=== PATIENT | male | born 1995 | race Caucasian/White ===

== ENCOUNTER 2017-03-13 18:37 | Emergency (ER) | payer BC, OTHER ==
[~2017-03-13] VITALS: Ht 177.8 cm; Wt 88.1 kg
[~2017-03-13 18:37] MED LIST: IBUP-1277 PO
[2017-03-13 18:47] VITALS: TEMP 36.9; Ht 177.8 cm; Wt 88.1 kg
[2017-03-13] MEDS ORDERED: KETOROLAC TROMETHAMINE 30 MG/ML VIAL IV STA (19:01)
[2017-03-13] MEDS ORDERED: DEXAMETHASONE SOD INJ 10 MG/ML VIAL IV ONE (19:15)
[2017-03-13] MEDS ORDERED: DICL50TA3 PO (19:19)
[2017-03-13 19:39] LABS: BASO % 0.3 %; BASO ABS # 0.03 K/uL (0-0.2); COMPLETE YES; EOS % 1.2 %; HEMATOCRIT 45.6 % (42-52); IG% 0.2 %; LYMPH % 22.8 %; LYMPH ABS # 2.13 K/uL (1.2-3.4); MEAN CELL VOLUME 84.1 fL (80-100); MEAN CORPUSCULAR HGB CONC 34.4 g/dl (32-36); MEAN PLATELET VOLUME 9.3 fL (7.4-10.4); MONO % 7.4 %; NEUT % 68.1 %; PLATELET COUNT 220 K/uL (130-400); RED BLOOD COUNT 5.42 M/uL (4.7-6.1); WHITE BLOOD COUNT 9.34 K/uL (4.8-10.8)
--- NOTE | 2017-03-13 19:54 | DIAGNOSTIC IMAGING REPORT ---
CT OF THE LUMBAR SPINE WITHOUT CONTRAST CLINICAL HISTORY: Lumbar radiculopathy. Back pain and lower extremity numbness. COMPARISON STUDY: No previous studies for comparison. TECHNIQUE: Axial images of the lumbar spine were obtained without IV contrast. Sagittal and coronal reconstructions were reviewed. FINDINGS: Alignment of the lumbar spine is anatomic. Vertebral body heights are maintained. No acute fracture or suspicious lesion is identified. There is a Schmorl's node along the inferior endplate of L3. The paravertebral soft tissues are unremarkable. The central canal and neural foramen are suboptimally assessed by CT. However, the neural foramen and central canal appear grossly patent. IMPRESSION: 1. No acute lumbar spine fracture or subluxation. 2. No significant abnormality of the lumbar spine by CT. Central canal and neural foramen are suboptimally assessed by CT but appear patent on this exam. Electronically signed by: Anam Almonte M.D. 03/13/2017 7:53 PM Dictated Date/Time: 03/13/2017 7:48 PM
[2017-03-13 20:05] LABS: ALT/SGPT 22 U/L (12-78); BLOOD UREA NITROGEN 6 mg/dl (7-18); BUN/CREATININE RATIO 6.6 (10-20); C-REACTIVE PROTEIN < 0.29 mg/dl (0-0.29); CARBON DIOXIDE 29 mmol/L (21-32); CHLORIDE 106 mmol/L (98-107); CREATININE 0.95 mg/dl (0.60-1.40); GLUCOSE 91 mg/dl (70-99); POTASSIUM 3.7 mmol/L (3.5-5.1); SODIUM 141 mmol/L (136-145)
[2017-03-13 20:08] LABS: ALKALINE PHOSPHATASE 69 U/L (45-117); AST/SGOT 13 U/L (15-37)
[2017-03-13 20:29] LABS: LYME DISEASE AB IGG NEG (NEG); LYME DISEASE AB IGM NEG (NEG)
--- NOTE | 2017-03-13 20:34 | EMERGENCY ROOM VISIT NOTE ---
History First contact with patient: 18:51 Chief Complaint: BACK PAIN Stated Complaint: NUMB IN LEGS AND BACK PAIN History of Present Illness The patient is a 21 year old male who presents to the Emergency Room with complaints of a 2 year history of intermittent lower back pain radiating down the legs. He has also had other joint pains as well. The patient reports that his symptoms have been progressively worsening over the past few weeks. He was seen by his PCP, Dr. 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 The patient denies any known injury to the back. 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 The patient has not noticed any weakness of the lower extremities, bladder/bowel difficulties or saddle anesthesias. He rates his discomfort a 7 out of 10. The patient reports that he was checked for Lyme's disease one year ago and was normal. He is outside every day and cannot rule out contact with deer ticks. Review of Systems HEENT: Denies dizziness, visual problems, hearing loss, tinnitus. Denies difficulty swallowing or oral lesions. PULMONARY: Denies cough, shortness of breath, sputum production or hemoptysis. CARDIOVASCULAR: Denies chest pain, palpitations, dyspnea on exertion, orthopnea or peripheral edema. GASTROINTESTINAL: Denies diarrhea, constipation, nausea, vomiting, or abdominal pain. GENITOURINARY: Denies dysuria, frequency, urgency or nocturia. NEUROLOGIC: Denies history of epilepsy, CVA, TIA or chronic headaches. MUSCULOSKELETAL: See history of present illness. SKIN: Denies rashes or lesions. PSYCHIATRIC: Denies history of depression or mental illness. ENDOCRINE: Denies history of diabetes or thyroid disorders. Past Medical/Surgical History Medical Problems: (1) No significant past medical history Surgical Problems: (1) History of wisdom tooth extraction Family History FH: diabetes mellitus FH: heart disease FH: hypertension FH: lung disease Social History Smoking Status: Never Smoker Smokeless Tobacco Use: Yes Alcohol Use: none Marital Status: Occupation Status: employed Current/Historical Medications Scheduled Diclofenac (Voltaren), 50 MG PO TID Physical Exam Vital Signs Date Time Temp Pulse Resp B/P (MAP) Pulse Ox O2 Delivery O2 Flow Rate FiO2 03/13/17 18:47 36.9 77 20 157/66 98 Room Air Physical Exam CONSTITUTIONAL: Healthy and well nourished. Alert and oriented X 3 with positive affect. Patient does not appear in any acute distress. HEENT: Normocephalic, atraumatic. Pupils equal, round and reactive. NECK: Full active range of motion without discomfort. RESPIRATORY: Clear to auscultation bilaterally with no wheezing, crackles, rhonchi or stridor. CARDIOVASCULAR: Regular rate and rhythm with no murmurs, rubs or gallops. GASTROINTESTINAL: Bowel sounds present in all quadrants. Soft and nontender to palpation. MUSCULOSKELETAL: Examination shows minimal tenderness to palpation through the lower lumbar paraspinous muscles and SI joints. Negative logroll. Negative straight leg raise. Ankle plantar/dorsiflexion strength is 5 out of 5 and symmetric bilaterally. INTEGUMENTARY: No rash or other significant dermatologic conditions noted. NEUROLOGIC: Lower extremities are sensory intact with 2+ deep tendon reflexes which are symmetric. Medical Decision & Procedures ER Provider Diagnostic Interpretation: Noncontrast CT of the lumbar spine does not show any acute fractures or other concerning findings, given limitations of a noncontrast study and MRI approach. Radiologist report is as follows: CT OF THE LUMBAR SPINE WITHOUT CONTRAST CLINICAL HISTORY: Lumbar radiculopathy. Back pain and lower extremity numbness. COMPARISON STUDY: No previous studies for comparison. TECHNIQUE: Axial images of the lumbar spine were obtained without IV contrast. Sagittal and coronal reconstructions were reviewed. FINDINGS: Alignment of the lumbar spine is anatomic. Vertebral body heights are maintained. No acute fracture or suspicious lesion is identified. There is a Schmorl's node along the inferior endplate of L3. The paravertebral soft tissues are unremarkable. The central canal and neural foramen are suboptimally assessed by CT. However, the neural foramen and central canal appear grossly patent. IMPRESSION: 1. No acute lumbar spine fracture or subluxation. 2. No significant abnormality of the lumbar spine by CT. Central canal and neural foramen are suboptimally assessed by CT but appear patent on this exam. Laboratory Results 03/13/17 19:20 Red Blood Count 5.42, Mean Corpuscular Volume 84.1, Mean Corpuscular Hemoglobin 29.0, Mean Corpuscular Hemoglobin Concent 34.4, Mean Platelet Volume 9.3, Neutrophils (%) (Auto) 68.1, Lymphocytes (%) (Auto) 22.8, Monocytes (%) (Auto) 7.4, Eosinophils (%) (Auto) 1.2, Basophils (%) (Auto) 0.3, Neutrophils # (Auto) 6.36, Lymphocytes # (Auto) 2.13, Monocytes # (Auto) 0.69, Eosinophils # (Auto) 0.11, Basophils # (Auto) 0.03 03/13/17 19:20 Test 03/13/17 19:20 White Blood Count 9.34 K/uL (4.8-10.8) Red Blood Count 5.42 M/uL (4.7-6.1) Hemoglobin 15.7 g/dL (14.0-18.0) Hematocrit 45.6 % (42-52) Mean Corpuscular Volume 84.1 fL (80-100) Mean Corpuscular Hemoglobin 29.0 pg (25-34) Mean Corpuscular Hemoglobin Concent 34.4 g/dl (32-36) Platelet Count 220 K/uL (130-400) Mean Platelet Volume 9.3 fL (7.4-10.4) Neutrophils (%) (Auto) 68.1 % Lymphocytes (%) (Auto) 22.8 % Monocytes (%) (Auto) 7.4 % Eosinophils (%) (Auto) 1.2 % Basophils (%) (Auto) 0.3 % Neutrophils # (Auto) 6.36 K/uL (1.4-6.5) Lymphocytes # (Auto) 2.13 K/uL (1.2-3.4) Monocytes # (Auto) 0.69 K/uL (0.11-0.59) Eosinophils # (Auto) 0.11 K/uL (0-0.5) Basophils # (Auto) 0.03 K/uL (0-0.2) RDW Standard Deviation 37.5 fL (36.4-46.3) RDW Coefficient of Variation 12.3 % (11.5-14.5) Immature Granulocyte % (Auto) 0.2 % Immature Granulocyte # (Auto) 0.02 K/uL (0.00-0.02) Erythrocyte Sedimentation Rate 2 mm/hr (0-14) Anion Gap 6.0 mmol/L (3-11) Est Creatinine Clear Calc Drug Dose 136.4 ml/min Estimated GFR () 131.2 Estimated GFR (Non- 113.2 BUN/Creatinine Ratio 6.6 (10-20) Calcium Level 9.0 mg/dl (8.5-10.1) Total Bilirubin 0.6 mg/dl (0.2-1) Direct Bilirubin 0.1 mg/dl (0-0.2) Aspartate Amino Transf (AST/SGOT) 13 U/L (15-37) Alanine Aminotransferase (ALT/SGPT) 22 U/L (12-78) Alkaline Phosphatase 69 U/L (45-117) Total Creatine Kinase 71 U/L (39-308) C-Reactive Protein < 0.29 mg/dl (0-0.29) Total Protein 7.7 gm/dl (6.4-8.2) Albumin 4.3 gm/dl (3.4-5.0) Lyme Disease IgG Antibody NEG (NEG) Lyme Disease IgM Antibody NEG (NEG) The above labs were reviewed. Lyme screen is negative. CBC, partial renal profile, LFTs, C-reactive protein and sedimentation rate are normal. Medications Administered Medications (Trade) Dose Ordered Sig/Amelia Route Start Time Stop Time Status Last Admin Dose Admin Ketorolac Tromethamine (Toradol Inj) 30 mg NOW STAT IV 03/13/17 19:01 03/13/17 19:05 DC 03/13/17 19:20 30 MG Dexamethasone Sodium Phosphate (Decadron Inj) 10 mg NOW ONCE IV 03/13/17 19:15 03/13/17 19:16 DC 03/13/17 19:20 10 MG ED Course Patient history and physical exam were performed. Nurse's notes were reviewed. Vital signs were reviewed and normal. IV access was established, and labs were drawn. The patient was given IV Toradol and Decadron. Review of labs shows no acute findings. Sedimentation rate, CRP and Lyme screen are negative. Noncontrast CT of the lumbar spine was also normal. Patient was advised of his normal results. At this point, I suggested treating the patient with a Medrol Dosepak and tramadol for pain. He was also encouraged to alternate ibuprofen and Tylenol for baseline pain relief. He was instructed to follow-up with his PCP for further reevaluation and management. He is welcome to return to the emergency department for any emergent symptoms such as profound lower extremity weakness, bladder/bowel incontinence or saddle anesthesias. The patient was happy with plan of care, voiced understanding of all discharge instructions, and rated his discomfort a 3 out of 10 at the conclusion of my exam. Medical Decision Patient presents to the emergency department with complaint of lower back pain radiating down both legs. He denies any symptoms consistent with cauda equina syndrome. He also has had no recent infection to suggest spinal abscess, and denies any trauma to the back. The patient has had this discomfort for years, with his symptoms progressively worsening. He does complain of other joint pain , therefore I do feel that rheumatology referral is warranted. His Lyme screen is negative. I do not feel that hospital's evaluation is warranted. [place] Drug Monitoring Program Search Results: patient reviewed within database, no issues identified Medication Reconcilliation Current Medication List: was personally reviewed by me Blood Pressure Screening Patient's blood pressure: Normal blood pressure Impression Primary Impression: Radiculitis, lumbosacral Departure Information Referrals Berlin Connolly M.D. (PCP) Patient Instructions My [facility]
[2017-03-13] MEDS ORDERED: TRAM-10 PO (20:37)
[2017-03-13] MEDS ORDERED: METH4PAK PO (20:37)
[2017-03-13] MEDS ORDERED: TRAMADOL HCL 50 MG HOME PACK PO ONE (20:45)
[2017-03-13 20:50] VITALS: BP 128/62; PULSE 72; O2SAT 99
== END 2017-03-13 20:51 | disposition home or self-care (01) ==
LOC: C.EDB 18:38
DX: M54.17 Radiculopathy, lumbosacral region (principal); Z79.899 Other long term (current) drug therapy; Z83.3 Family history of diabetes mellitus; Z82.49 Family history of ischemic heart disease and other diseases of the circulatory system

== ENCOUNTER 2021-03-20 22:06 | Observation (INO) ==
[2021-03-20] MEDS ORDERED: MoRPHine SULFATE 4 MG/ML 1 ML CARP\\VIAL IV STA (23:19)
[2021-03-20] MEDS ORDERED: SODIUM CHLORIDE 0.9% 1000ML 1,000 ML IV SCH (23:30)
[2021-03-20 23:46] LABS: Basophils # (auto) 0.02 K/uL (0-0.2); Basophils % (auto) 0.2 %; Eosinophils # (auto) 0.02 K/uL (0-0.5); Eosinophils % (auto) 0.2 %; Hemoglobin 16.1 g/dL (14.0-18.0); Immature Granulocytes # (auto) 0.03 K/uL (0.00-0.02); Immature Granulocytes % (auto) 0.2 %; Lymphocytes # (auto) 1.31 K/uL (1.2-3.4); Lymphocytes % (auto) 10.4 %; Mean Corpuscular Hemoglobin 30.2 pg (25-34); Mean Corpuscular Hgb Conc 35.8 g/dL (32-36); Mean Corpuscular Volume 84.4 fL (80-100); Monocytes # (auto) 0.86 K/uL (0.11-0.59); Monocytes % (auto) 6.8 %; Neutrophils # (auto) 10.36 K/uL (1.4-6.5); Neutrophils % (auto) 82.2 %; Platelet Count 224 K/uL (130-400); RDW Coefficient of Variation 13.4 % (11.5-14.5); RDW Standard Deviation 41.2 fL (36.4-46.3); Red Blood Count 5.33 M/uL (4.7-6.1)
[2021-03-20 23:55] LABS: iSTAT Creatinine 1.1 mg/dl (0.6-1.3); iSTAT Ionized Calcium 1.25 mmol/l (1.12-1.32); iSTAT Potassium 3.8 mmol/L (3.3-5.0)
[2021-03-20] MEDS ORDERED: OPTIRAY 320 100ml IV ONE (23:56)
[2021-03-21 00:02] LABS: Chloride 106 mmol/L (98-107); Potassium 3.7 mmol/L (3.5-5.1); Sodium 138 mmol/L (136-145)
[2021-03-21 00:03] LABS: Alanine Aminotransferase 31 U/L (12-78); Albumin Level 4.7 gm/dl (3.4-5.0); Aspartate Aminotransferase 23 U/L (15-37); BUN Creatinine Ratio 7.5 (10-20); Blood Urea Nitrogen 8 mg/dl (7-18); Calcium 9.3 mg/dl (8.5-10.1); Carbon Dioxide 28 mmol/L (21-32); Est GFR (African American) 111.7 ml/min; Est GFR (Non-African American) 96.4 ml/min; Glucose 97 mg/dl (70-99)
[2021-03-21 00:05] LABS: Albumin Globulin Ratio 1.2 (0.9-2); Alkaline Phosphatase 76 U/L (45-117); Bilirubin,Total 1.1 mg/dl (0.2-1); Globulin 3.8 gm/dl (2.5-4.0); Total Protein 8.5 gm/dl (6.4-8.2)
[2021-03-21] MEDS ORDERED: MoRPHine SULFATE 4 MG/ML 1 ML CARP\\VIAL IV STA (02:00)
[2021-03-21 02:50] LABS: Magnesium 2.1 mg/dl (1.8-2.4)
[2021-03-21] MEDS ORDERED: KETOROLAC TROMETHAMINE 15 MG/ML VIAL IV ONE (03:25)
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
[2021-03-21] MEDS ORDERED: ACETAMINOPHEN 325 MG TAB PO PRN ×2 (03:45→04:36)
[2021-03-21] MEDS ORDERED: PROMETHAZINE HCL 12.5 MG in SODIUM CHLORIDE 0.9% 50 ML IV PRN (04:36)
[2021-03-21] MEDS ORDERED: LACTATED RINGER'S 1,000 ML IV ONE (04:36)
[2021-03-21] MEDS: traMADol HCL 50 MG TABLET PO PRN ×2 (05:11→16:37)
[2021-03-21] MEDS: PATIENT'S HEIGHT AND/OR WEIGHT NEEDED SCH ×3 (06:10→08:40)
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
[2021-03-21 07:27] LABS: Basophils # (auto) 0.02 K/uL (0-0.2); Basophils % (auto) 0.3 %; Eosinophils # (auto) 0.03 K/uL (0-0.5); Eosinophils % (auto) 0.4 %; Hemoglobin 13.7 g/dL (14.0-18.0); Immature Granulocytes # (auto) 0.01 K/uL (0.00-0.02); Immature Granulocytes % (auto) 0.1 %; Lymphocytes # (auto) 2.24 K/uL (1.2-3.4); Lymphocytes % (auto) 29.9 %; Mean Corpuscular Hemoglobin 29.4 pg (25-34); Mean Corpuscular Hgb Conc 35.1 g/dL (32-36); Mean Corpuscular Volume 83.7 fL (80-100); Mean Platelet Volume 9.2 fL (7.4-10.4); Monocytes # (auto) 0.94 K/uL (0.11-0.59); Monocytes % (auto) 12.5 %; Neutrophils # (auto) 4.26 K/uL (1.4-6.5); Neutrophils % (auto) 56.8 %; Platelet Count 168 K/uL (130-400); RDW Coefficient of Variation 13.4 % (11.5-14.5); RDW Standard Deviation 40.8 fL (36.4-46.3); Red Blood Count 4.66 M/uL (4.7-6.1)
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
[2021-03-21] MEDS: HYDROmorphone INJ 0.5 MG/0.5 ML SYR IV PRN ×3 (08:02→19:36)
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
[2021-03-21] MEDS: LIDOCAINE 5% 1 PATCH TD SCH ×2 (08:40→10:41)
[2021-03-21] MEDS ORDERED: Nursing to Pharmacy Communication SCH (08:45)
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
--- NOTE | 2021-03-21 13:35 | XRay Report ---
LUMBAR SPINE 2 VIEWS CLINICAL HISTORY: Low back pain. FINDINGS: AP and lateral standing views of the lumbar spine are correlated with CT and MRI of lumbar spine performed the same day 03/21/2021. The skeletal structures are well mineralized. Again seen is a mild acute superior endplate compression fracture of L2. No retropulsed fragments are identified. No additional fracture is seen. Vertebral body height is otherwise maintained. Alignment is preserved. The transverse and spinous processes are intact. The intervertebral disc spaces are well-maintained. The visualized bony pelvis appears intact. There is a nonobstructed abdominal bowel gas pattern. Excr eted IV contrast is noted in the bladder. IMPRESSION: 1. There is unchanged appearance of a mild acute superior endplate compression fracture of L2 as comp ared to today's earlier examinations. 2. No retropulsed fragments are identified. 3. No additional fracture is seen. ACT 112: Negative or not required by law. Electronically signed by: Slava Davis M.D. 03/21/2021 1:34 PM
--- NOTE | 2021-03-21 13:46 | Communication Note ---
Date of Service: March 21, 2021 Upright x-rays lumbar spine completed, acceptable alignment in TLSO Plan: - may mobilize in TLSO - f/u 2 weeks in clinic
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
== END 2021-03-21 19:45 | disposition short-term general hospital (02) ==
LOC: ED 22:06 → INTOOBSV 03-21 03:39 → 3E 03-21 03:39 → SUATTDRO 03-21 03:39 → 3E 03-21 04:16